=== PATIENT | female | born 1950 | race Caucasian/White ===

== ENCOUNTER 2017-02-17 15:33 | Emergency (ER) | payer BC, MEDICARE ==
[~2017-02-17] VITALS: Ht 157.5 cm; Wt 70.2 kg
[2017-02-17] MEDS ORDERED: ACETAMINOPHEN 325 MG TABLET PO ONE (16:00)
[2017-02-17] MEDS ORDERED: SODIUM CHLORIDE 0.9% 1,000ML IVBOLUS ONE (16:00)
[2017-02-17] MEDS ORDERED: SODIUM CHLORIDE FLUSH 10ML SYR IVF ONE (16:00)
[2017-02-17] MEDS ORDERED: AMLO10TA2 PO (16:31)
[2017-02-17] MEDS ORDERED: ONDA8TAB9 PO (16:31)
[2017-02-17] MEDS ORDERED: ACETAMINOPHEN 325 MG TABLET ONE (16:46)
[2017-02-17 16:48] LABS: BLOOD UREA NITROGEN 16 mg/dL (7-18)
[2017-02-17] MEDS ORDERED: LEVOFLOXACIN 750 MG TABLET PO ONE (18:00)
[2017-02-17] MEDS ORDERED: TBO-FILGRASTIM 480 MCG/0.8 ML SQ ONE (18:00)
[2017-02-17] MEDS ORDERED: LEVOFLOXACIN 750 MG TABLET ONE (18:14)
[2017-02-17 18:36] VITALS: BP 146/106
== END 2017-02-17 18:38 | disposition home or self-care (01) ==
LOC: ED 16:24
DX: D70.1 Agranulocytosis secondary to cancer chemotherapy (principal); R50.9 Fever, unspecified
CPT/HCPCS: 36415; 71010; 80048; 81001; 82040; 83605; 84145; 85025; 87040; 96372; 99285; J1447; J7030

== ENCOUNTER → 2017-04-13 | Outpatient (CLI) | payer BC, MEDICARE ==
[~2017-04-13] MED LIST: AMLO10TA2 PO; AMLO5TAB4 PO; APIX5TAB PO; OMNIPAQUE 350 MG/ML, 100ML BOTTLE ONE; ONDA8TAB9 PO
== END | disposition home or self-care (01) ==
LOC: CFH 11:50
PROVIDERS: ATTEND Internal Medicine Hematology & Oncology
DX: I26.99 Other pulmonary embolism without acute cor pulmonale (principal); R91.8 Other nonspecific abnormal finding of lung field; J90 Pleural effusion, not elsewhere classified; E04.1 Nontoxic single thyroid nodule; R59.0 Localized enlarged lymph nodes
CPT/HCPCS: 71275; Q9967

== ENCOUNTER 2017-04-16 10:36 | Inpatient (IN) | payer BC, MEDICARE ==
[~2017-04-16] VITALS: Ht 157.5 cm; Wt 66.7 kg
[~2017-04-16 10:36] MED LIST changes: -AMLO5TAB4 PO; -APIX5TAB PO; -OMNIPAQUE 350 MG/ML, 100ML BOTTLE ONE
[2017-04-16] MEDS ORDERED: ENOXAPARIN 60 MG/0.6 ML SQ ONE (10:49)
[2017-04-16] MEDS ORDERED: SODIUM CHLORIDE FLUSH 10ML SYR IVF ONE (11:00)
[2017-04-16] MEDS ORDERED: SODIUM CHLORIDE 0.9% 1,000ML IVBOLUS ONE (11:00)
[2017-04-16 11:22] LABS: HEMATOCRIT 35.3 % (34.6-47.8); HEMOGLOBIN 11.7 g/dL (11.7-16.4); WHITE BLOOD COUNT 6.7 x10^3/uL (3.4-10)
[2017-04-16] MEDS ORDERED: AMLO5TAB4 PO (11:25)
[2017-04-16 11:34] LABS: BLOOD UREA NITROGEN 8 mg/dL (7-18)
[2017-04-16 11:42] LABS: IS PT STATUS REG ER OR PRE ER? YES
[2017-04-16] MEDS ORDERED: CEFTRIAXONE PMX 1GM/50ML 50 ML IVPB ONE (12:00)
[2017-04-16] MEDS ORDERED: HYDROcodone/APAP 5/325 TABLET PO PRN (13:00)
[2017-04-16] MEDS ORDERED: BISACODYL 10 MG SUPP PR PRN (13:00)
[2017-04-16] MEDS ORDERED: DOCUSATE 100 MG CAPSULE PO PRN (13:00)
[2017-04-16] MEDS ORDERED: ONDANSETRON 2MG/ML, 2ML IVPush PRN (13:00)
[2017-04-16] MEDS ORDERED: POLYETHYLENE GLYCOL 17 GM PACKET PO PRN (13:00)
[2017-04-16] MEDS ORDERED: LABETALOL 5MG/ML, 20ML IVPush PRN (13:00)
[2017-04-16] MEDS ORDERED: morphine SULFATE 10 MG/ML, 1ML IVPush PRN (13:00)
[2017-04-16] MEDS ORDERED: ACETAMINOPHEN 325 MG TABLET PO PRN (13:00)
[2017-04-16] MEDS ORDERED: ENOXAPARIN 60 MG/0.6 ML ONE (14:26)
[2017-04-16] MEDS: ENOXAPARIN 60 MG/0.6 ML SQ SCH (14:28)
[2017-04-16 15:58] VITALS: BP 155/82
[2017-04-16 19:15] VITALS: BP 128/76
[2017-04-16] MEDS: SODIUM CHLORIDE FLUSH 10ML SYR IVF SCH (21:19)
[2017-04-16] MEDS: AMLODIPINE 5 MG TABLET PO SCH (22:56)
[2017-04-17 01:15] VITALS: BP 138/80
[2017-04-17] MEDS: ENOXAPARIN 60 MG/0.6 ML SQ SCH (03:19)
[2017-04-17 05:09] LABS: HEMATOCRIT 30.3 % (34.6-47.8); HEMOGLOBIN 10.3 g/dL (11.7-16.4); WHITE BLOOD COUNT 4.2 x10^3/uL (3.4-10)
[2017-04-17 08:05] VITALS: BP_SYST 147; BP_SYST 159; BP_DIAS 75; BP_DIAS 79
[2017-04-17] MEDS: SODIUM CHLORIDE FLUSH 10ML SYR IVF SCH ×2 (08:52→21:15)
[2017-04-17 15:16] VITALS: BP_SYST 162; BP_SYST 164; BP_DIAS 93; BP_DIAS 94
[2017-04-17 20:36] VITALS: BP 125/77
[2017-04-17] MEDS: APIXABAN 5 MG TABLET PO SCH (21:16)
[2017-04-17] MEDS: AMLODIPINE 5 MG TABLET PO SCH (21:16)
[2017-04-18 08:18] LABS: BLOOD UREA NITROGEN 8 mg/dL (7-18); HEMATOCRIT 29.9 % (34.6-47.8); WHITE BLOOD COUNT 3.8 x10^3/uL (3.4-10)
[2017-04-18] MEDS: SODIUM CHLORIDE FLUSH 10ML SYR IVF SCH (09:14)
[2017-04-18] MEDS: APIXABAN 5 MG TABLET PO SCH (09:14)
[2017-04-18] MEDS ORDERED: APIX5TAB PO (12:12)
== END 2017-04-18 14:40 | disposition home or self-care (01) | DRG 175 ==
LOC: ED 10:54 → EDIP 11:53 → 5SO 15:54
PROVIDERS: ADMIT Hospitalist; ATTEND Hospitalist
DX: I26.99 Other pulmonary embolism without acute cor pulmonale (principal); J96.21 Acute and chronic respiratory failure with hypoxia; J15.9 Unspecified bacterial pneumonia; D68.59 Other primary thrombophilia; I31.3 Pericardial effusion (noninflammatory); I11.9 Hypertensive heart disease without heart failure; F41.9 Anxiety disorder, unspecified; Z85.118 Personal history of other malignant neoplasm of bronchus and lung; Z86.718 Personal history of other venous thrombosis and embolism; Z87.891 Personal history of nicotine dependence; Z92.21 Personal history of antineoplastic chemotherapy; Z92.3 Personal history of irradiation
CPT/HCPCS: 36415; 71010; 80048; 82040; 83605; 84484; 85025; 85610; 85730; 87040; 93005; 93306; 93970; 96360; 96372; J1650; J7030

== ENCOUNTER 2017-04-24 00:12 | Inpatient (IN) | payer BC, MEDICARE ==
[~2017-04-24] VITALS: Ht 157.5 cm; Wt 88.3 kg
[~2017-04-24 00:12] MED LIST changes: +AMLO5TAB4 PO; +APIX5TAB PO
[2017-04-24] MEDS ORDERED: SODIUM CHLORIDE 0.9% 1,000ML IVBOLUS ONE (00:30)
[2017-04-24 00:54] LABS: ASPARTATE AMINO TRANSFERASE 24 U/L (15-37); BLOOD UREA NITROGEN 9 mg/dL (7-18)
[2017-04-24 00:58] LABS: IS PT STATUS REG ER OR PRE ER? NO
[2017-04-24 01:15] LABS: HEMATOCRIT 34.2 % (34.6-47.8); HEMOGLOBIN 11.4 g/dL (11.7-16.4); WHITE BLOOD COUNT 5.5 x10^3/uL (3.4-10)
[2017-04-24] MEDS ORDERED: OMNIPAQUE 350 MG/ML, 100ML BOTTLE ONE (01:31)
[2017-04-24] MEDS ORDERED: HEPARIN 25,000 UNITS/500ML PMX 500 ML ONE (02:23)
[2017-04-24] MEDS ORDERED: HEPARIN 5,000 UNITS/ML, 1ML ONE (02:23)
[2017-04-24] MEDS ORDERED: HEPARIN 25,000 UNITS/500ML PMX 500 ML IV PRN (02:30)
[2017-04-24] MEDS ORDERED: HEPARIN 5,000 UNITS/ML, 1ML IV PRN (02:30)
[2017-04-24] MEDS ORDERED: HEPARIN 5,000 UNITS/ML, 1ML IV ONE (02:30)
[2017-04-24] MEDS ORDERED: SODIUM CHLORIDE 0.9% 1,000 ML IV ONE (03:25)
[2017-04-24] MEDS ORDERED: MORPHINE SULFATE 4 MG/ML, 1ML IVPush PRN (03:30)
[2017-04-24] MEDS ORDERED: TEMAZEPAM 15 MG CAPSULE PO PRN (03:30)
[2017-04-24] MEDS ORDERED: HYDROcodone/APAP 5/325 TABLET PO PRN (03:30)
[2017-04-24] MEDS ORDERED: ONDANSETRON 2MG/ML, 2ML IVPush PRN ×2 (03:30)
[2017-04-24] MEDS ORDERED: APIX5TAB PO (04:21)
[2017-04-24 04:32] VITALS: BP 149/83
[2017-04-24 07:20] VITALS: BP 130/77
[2017-04-24] MEDS ORDERED: APIXABAN 5 MG TABLET PO SCH (09:00)
[2017-04-24] MEDS ORDERED: AMLODIPINE 5 MG TABLET PO SCH (09:00)
[2017-04-24 13:00] VITALS: BP 128/77
[2017-04-24 14:29] VITALS: BP 125/65
[2017-04-24 19:25] VITALS: BP 134/78
[2017-04-24] MEDS: APIXABAN 5 MG TABLET PO SCH (20:17)
[2017-04-25 01:42] VITALS: BP 117/77
[2017-04-25 04:38] LABS: HEMATOCRIT 29.9 % (34.6-47.8); WHITE BLOOD COUNT 3.8 x10^3/uL (3.4-10)
[2017-04-25 08:12] VITALS: BP 114/71
[2017-04-25] MEDS: APIXABAN 5 MG TABLET PO SCH (08:21)
[2017-04-25] MEDS ORDERED: AMLODIPINE 5 MG TABLET PO SCH (21:00)
[2017-04-26 06:15] LABS: ANTI-Xa-UNFRACTIONATED HEP > 0.79 IU/mL (0.30-0.70)
== END 2017-04-25 11:05 | disposition home or self-care (01) | DRG 189 ==
LOC: ED 02:02 → EDIP 03:25 → 4WST 04:29 → DCLOUNGE 04-25 11:00
PROVIDERS: ADMIT Internal Medicine; ATTEND Internal Medicine
DX: J96.21 Acute and chronic respiratory failure with hypoxia (principal); D68.59 Other primary thrombophilia; Z99.81 Dependence on supplemental oxygen; R00.0 Tachycardia, unspecified; I10 Essential (primary) hypertension; I49.9 Cardiac arrhythmia, unspecified; R04.0 Epistaxis; Z85.118 Personal history of other malignant neoplasm of bronchus and lung; Z86.711 Personal history of pulmonary embolism; Z87.891 Personal history of nicotine dependence
CPT/HCPCS: 36415; 71275; 80053; 83735; 84484; 85025; 85520; 85610; 85730; 93005; 96360; Q9967; J7030

== ENCOUNTER 2017-05-02 18:36 | Inpatient (IN) | payer BC, MEDICARE ==
[~2017-05-02] VITALS: Ht 157.5 cm; Wt 69.3 kg
[2017-05-02 19:53] LABS: HEMATOCRIT 37.8 % (34.6-47.8); HEMOGLOBIN 12.9 g/dL (11.7-16.4); WHITE BLOOD COUNT 6.6 x10^3/uL (3.4-10)
[2017-05-02] MEDS ORDERED: SODIUM CHLORIDE 0.9% 1,000ML IVBOLUS ONE (20:00)
[2017-05-02] MEDS ORDERED: SODIUM CHLORIDE FLUSH 10ML SYR IVF ONE (20:00)
[2017-05-02 20:06] LABS: ASPARTATE AMINO TRANSFERASE 23 U/L (15-37); BLOOD UREA NITROGEN 12 mg/dL (7-18)
[2017-05-02 20:10] LABS: IS PT STATUS REG ER OR PRE ER? YES
[2017-05-02] MEDS ORDERED: OMNIPAQUE 350 MG/ML, 100ML BOTTLE ONE (21:10)
[2017-05-02] MEDS ORDERED: AMLODIPINE 5 MG TABLET PO ONE (23:30)
[2017-05-03 00:29] VITALS: BP 146/86
[2017-05-03] MEDS ORDERED: ACETAMINOPHEN 325 MG TABLET PO PRN (02:30)
[2017-05-03] MEDS ORDERED: HYDROcodone/APAP 5/325 TABLET PO PRN (02:30)
[2017-05-03] MEDS ORDERED: ONDANSETRON 2MG/ML, 2ML IVPush PRN (02:30)
[2017-05-03] MEDS ORDERED: morphine SULFATE 10 MG/ML, 1ML IVPush PRN (02:30)
[2017-05-03] MEDS ORDERED: TEMAZEPAM 15 MG CAPSULE PO PRN (02:30)
[2017-05-03] MEDS ORDERED: LABETALOL 5MG/ML, 20ML IVPush PRN (02:30)
[2017-05-03] MEDS ORDERED: GUAIFENESIN/DM 200-20MG, 10ML UDC PO PRN (02:30)
[2017-05-03] MEDS ORDERED: ONDANSETRON ODT 4 MG PO PRN (02:30)
[2017-05-03 07:10] VITALS: BP 145/83
[2017-05-03] MEDS: SENNA/DOCUSATE TABLET PO SCH (09:00)
[2017-05-03] MEDS ORDERED: APIXABAN 5 MG TABLET PO SCH (09:00)
[2017-05-03 12:20] VITALS: BP 154/82
[2017-05-03 19:37] VITALS: BP 149/94
[2017-05-03] MEDS: AMLODIPINE 5 MG TABLET PO SCH (20:28)
[2017-05-04 04:02] VITALS: BP 113/77
[2017-05-04 05:34] LABS: HEMATOCRIT 38.1 % (34.6-47.8); WHITE BLOOD COUNT 5.2 x10^3/uL (3.4-10)
[2017-05-04 05:55] LABS: ASPARTATE AMINO TRANSFERASE 21 U/L (15-37); BLOOD UREA NITROGEN 11 mg/dL (7-18)
[2017-05-04 07:10] VITALS: BP 122/83
[2017-05-04] MEDS: SENNA/DOCUSATE TABLET PO SCH (09:12)
[2017-05-04 15:10] VITALS: BP 117/81
[2017-05-04 19:43] VITALS: BP 123/82
[2017-05-04] MEDS: AMLODIPINE 5 MG TABLET PO SCH (20:57)
[2017-05-05 03:36] VITALS: BP 113/75
[2017-05-05 07:23] VITALS: BP 130/80
[2017-05-05] MEDS: SENNA/DOCUSATE TABLET PO SCH (09:06)
[2017-05-05] MEDS ORDERED: MIDAZOLAM 1 MG/ML, 5ML ONE ×3 (09:53→12:00)
[2017-05-05] MEDS ORDERED: FENTANYL PF 100 MCG/2ML ONE ×3 (09:53→13:20)
[2017-05-05] MEDS ORDERED: ACETYLCYSTEINE 20%, 10ML INH STA (11:19)
[2017-05-05] MEDS ORDERED: LIDOCAINE 2%, 20ML ONE (12:00)
[2017-05-05] MEDS ORDERED: SUCCINYLCHOLINE 20 MG/ML, 10ML ONE (12:00)
[2017-05-05] MEDS ORDERED: LIDOCAINE GEL 2%, 5ML ONE (12:00)
[2017-05-05] MEDS ORDERED: LIDOCAINE 4% TOPICAL SOLUTION 50 ML ONE (12:00)
[2017-05-05] MEDS ORDERED: PROPOFOL 100 ML IV ONE (12:50)
[2017-05-05] MEDS ORDERED: PROPOFOL 100 ML IV PRN (13:00)
[2017-05-05] MEDS ORDERED: ACETYLCYSTEINE 10%, 4ML IPPB ONE (13:01)
[2017-05-05] MEDS ORDERED: SENNA/DOCUSATE TABLET NG PRN (14:00)
[2017-05-05] MEDS ORDERED: BISACODYL 10 MG SUPP PR PRN (14:00)
[2017-05-05] MEDS ORDERED: LIDOCAINE-MPF 1%, 2ML ENDO PRN (14:00)
[2017-05-05] MEDS ORDERED: SENNOSIDES 8.8 MG/5 ML ORAL SOL NG PRN (14:00)
[2017-05-05] MEDS: ALBUTEROL/IPRATROPIUM 2.5MG/0.5MG, 3 ML INLINE SCH ×3 (14:00→22:19)
[2017-05-05] MEDS ORDERED: LACTULOSE 20 GM/30 ML UDC NG PRN (14:00)
[2017-05-05] MEDS ORDERED: FENTANYL PF 100 MCG/2ML IVPush ONE (14:00)
[2017-05-05] MEDS ORDERED: PHARMACY MAY ADJ FOR RENAL FX MC SCH (14:00)
[2017-05-05 14:53] LABS: ABG COLLECTION SITE LEFT BRACHIAL; FIO2 100 %
[2017-05-05 15:35] LABS: HEMOGLOBIN 12.7 g/dL (11.7-16.4); WHITE BLOOD COUNT 12.3 x10^3/uL (3.4-10)
[2017-05-05 15:41] LABS: BLOOD UREA NITROGEN 14 mg/dL (7-18)
[2017-05-05 16:58] LABS: ABG COLLECTION SITE LEFT BRACHIAL
[2017-05-05] MEDS: methylPREDNISolone SOD SUCC 125 MG/2 ML IVPush SCH ×2 (17:16→23:09)
[2017-05-05] MEDS: FAMOTIDINE 20 MG/2 ML IV SCH (17:16)
[2017-05-05] MEDS: FENTANYL PF 100 MCG/2ML IVPush PRN ×2 (17:16→20:32)
[2017-05-05 17:56] LABS: BRONCHOSCOPY RECEIVED; BRONCHOSCOPY QUESTIONNAIRE RECEIVED
[2017-05-05] MEDS: PROPOFOL 100 ML IV PRN (20:36)
[2017-05-05] MEDS: AMLODIPINE 5 MG TABLET PO SCH (21:46)
[2017-05-05] MEDS ORDERED: SODIUM CHLORIDE 0.9% 1,000ML IVBOLUS ONE (22:00)
[2017-05-06] MEDS ORDERED: morphine SULFATE 10 MG/ML, 1ML IVPush PRN (00:30)
[2017-05-06] MEDS ORDERED: LIDOCAINE-MPF 1%, 2ML ENDO PRN (00:30)
[2017-05-06] MEDS ORDERED: ONDANSETRON ODT 4 MG PO PRN (00:30)
[2017-05-06] MEDS ORDERED: LABETALOL 5MG/ML, 20ML IVPush PRN (00:30)
[2017-05-06] MEDS ORDERED: ONDANSETRON 2MG/ML, 2ML IVPush PRN (00:30)
[2017-05-06] MEDS ORDERED: BISACODYL 10 MG SUPP PR PRN (00:30)
[2017-05-06] MEDS ORDERED: ACETAMINOPHEN 325 MG TABLET PO PRN (00:30)
[2017-05-06] MEDS ORDERED: HYDROcodone/APAP 5/325 TABLET PO PRN (00:30)
[2017-05-06] MEDS ORDERED: TEMAZEPAM 15 MG CAPSULE PO PRN (00:30)
[2017-05-06] MEDS: ALBUTEROL/IPRATROPIUM 2.5MG/0.5MG, 3 ML INLINE SCH ×6 (02:17→21:33)
[2017-05-06] MEDS: FENTANYL PF 100 MCG/2ML IVPush PRN (02:52)
[2017-05-06 04:10] LABS: ABG COLLECTION SITE NOT DOCUMENTED
[2017-05-06 04:20] LABS: BLOOD UREA NITROGEN 13 mg/dL (7-18)
[2017-05-06 04:34] LABS: HEMATOCRIT 33.3 % (34.6-47.8); HEMOGLOBIN 11.2 g/dL (11.7-16.4); WHITE BLOOD COUNT 10.3 x10^3/uL (3.4-10)
[2017-05-06] MEDS: methylPREDNISolone SOD SUCC 125 MG/2 ML IVPush SCH ×4 (05:11→23:49)
[2017-05-06] MEDS: FAMOTIDINE 20 MG/2 ML IV SCH ×2 (05:11→17:29)
[2017-05-06] MEDS: PROPOFOL 100 ML IV PRN ×2 (07:39→17:33)
[2017-05-06] MEDS ORDERED: MAGNESIUM SULFATE PMX 4GM/100M 100 ML IV ONE (08:00)
[2017-05-06] MEDS: SODIUM CHLORIDE 0.9% 1,000 ML IV SCH ×2 (08:00→16:35)
[2017-05-06] MEDS: SENNA/DOCUSATE TABLET PO SCH (08:37)
[2017-05-06] MEDS ORDERED: SODIUM BICARB 8.4%, 50ML SYRINGE IVPush ONE (11:00)
[2017-05-06] MEDS: CETACAINE 50ML TP PRN ×3 (11:09→21:36)
[2017-05-06] MEDS: AMLODIPINE 5 MG TABLET PO SCH (21:35)
[2017-05-07] MEDS: ALBUTEROL/IPRATROPIUM 2.5MG/0.5MG, 3 ML INLINE SCH ×6 (01:45→23:03)
[2017-05-07] MEDS: PROPOFOL 100 ML IV PRN (03:36)
[2017-05-07] MEDS: SODIUM CHLORIDE 0.9% 1,000 ML IV SCH (03:45)
[2017-05-07 04:23] LABS: ABG COLLECTION SITE RIGHT RADIAL; COLLATERAL CIRCULATION TESTING NORMAL
[2017-05-07 04:26] LABS: HEMATOCRIT 30.3 % (34.6-47.8); HEMOGLOBIN 10.4 g/dL (11.7-16.4); WHITE BLOOD COUNT 10.6 x10^3/uL (3.4-10)
[2017-05-07 04:37] LABS: BLOOD UREA NITROGEN 11 mg/dL (7-18)
[2017-05-07] MEDS: CETACAINE 50ML TP PRN (04:55)
[2017-05-07] MEDS ORDERED: POTASSIUM CHLORIDE 20 MEQ PACKET PO ONE ×2 (05:00→10:00)
[2017-05-07] MEDS: FAMOTIDINE 20 MG/2 ML IV SCH ×2 (06:06→17:00)
[2017-05-07] MEDS: methylPREDNISolone SOD SUCC 125 MG/2 ML IVPush SCH ×4 (06:06→23:10)
[2017-05-07] MEDS ORDERED: HEPARIN 5,000 UNITS/ML, 1ML IV ONE (08:00)
[2017-05-07] MEDS: SENNA/DOCUSATE TABLET PO SCH (08:03)
[2017-05-07] MEDS: HEPARIN 25,000 UNITS/500ML PMX 500 ML IV PRN (12:53)
[2017-05-07] MEDS: GUAIFENESIN ER 600 MG TABLET PO SCH (21:04)
[2017-05-07] MEDS: HEPARIN 5,000 UNITS/ML, 1ML IV PRN (21:04)
[2017-05-07] MEDS: AMLODIPINE 5 MG TABLET PO SCH (21:05)
[2017-05-08] MEDS: ALBUTEROL/IPRATROPIUM 2.5MG/0.5MG, 3 ML INLINE SCH ×6 (03:10→22:55)
[2017-05-08 03:11] LABS: HEMATOCRIT 31.1 % (34.6-47.8); HEMOGLOBIN 10.2 g/dL (11.7-16.4); WHITE BLOOD COUNT 8.8 x10^3/uL (3.4-10)
[2017-05-08 03:12] LABS: ABG COLLECTION SITE LEFT BRACHIAL
[2017-05-08 03:24] LABS: BLOOD UREA NITROGEN 9 mg/dL (7-18)
[2017-05-08] MEDS: methylPREDNISolone SOD SUCC 125 MG/2 ML IVPush SCH ×2 (05:33→12:08)
[2017-05-08] MEDS ORDERED: SODIUM CHLORIDE 0.9% 1,000 ML IV SCH ×2 (08:00)
[2017-05-08] MEDS: FAMOTIDINE 20 MG TABLET PO SCH ×2 (08:55→21:45)
[2017-05-08] MEDS: GUAIFENESIN ER 600 MG TABLET PO SCH ×2 (08:55→21:45)
[2017-05-08] MEDS: SENNA/DOCUSATE TABLET PO SCH (08:55)
[2017-05-08 12:05] VITALS: BP 143/75
[2017-05-08] MEDS: HEPARIN 25,000 UNITS/500ML PMX 500 ML IV PRN (17:02)
[2017-05-08 19:24] VITALS: BP 142/77
[2017-05-08] MEDS: AMLODIPINE 5 MG TABLET PO SCH (21:45)
[2017-05-08] MEDS: methylPREDNISolone SOD SUCC 40 MG/ML IVPush SCH (21:51)
[2017-05-09 00:54] VITALS: BP 153/84
[2017-05-09] MEDS: ALBUTEROL/IPRATROPIUM 2.5MG/0.5MG, 3 ML INLINE SCH ×5 (02:55→16:50)
[2017-05-09 05:19] LABS: HEMATOCRIT 29.5 % (34.6-47.8); HEMOGLOBIN 9.9 g/dL (11.7-16.4); WHITE BLOOD COUNT 6.8 x10^3/uL (3.4-10)
[2017-05-09 05:20] LABS: ASPARTATE AMINO TRANSFERASE 12 U/L (15-37); BLOOD UREA NITROGEN 9 mg/dL (7-18)
[2017-05-09] MEDS: HEPARIN 5,000 UNITS/ML, 1ML IV PRN (06:14)
[2017-05-09] MEDS: methylPREDNISolone SOD SUCC 40 MG/ML IVPush SCH ×3 (06:29→22:05)
[2017-05-09] MEDS: SENNA/DOCUSATE TABLET PO SCH (09:00)
[2017-05-09] MEDS: GUAIFENESIN ER 600 MG TABLET PO SCH ×2 (09:07→21:08)
[2017-05-09] MEDS: FAMOTIDINE 20 MG TABLET PO SCH ×2 (09:07→21:08)
[2017-05-09 09:11] VITALS: BP 127/77
[2017-05-09 14:07] VITALS: BP 134/76
[2017-05-09 17:44] VITALS: BP 153/89
[2017-05-09] MEDS: HEPARIN 25,000 UNITS/500ML PMX 500 ML IV PRN (17:51)
[2017-05-09] MEDS ORDERED: APIXABAN 5 MG TABLET PO SCH (19:00)
[2017-05-09 19:38] VITALS: BP 146/79
[2017-05-09] MEDS ORDERED: MELATONIN 5 MG TABLET PO PRN (20:00)
[2017-05-09] MEDS: AMLODIPINE 5 MG TABLET PO SCH (21:08)
[2017-05-10 02:03] VITALS: BP 134/72
[2017-05-10] MEDS: methylPREDNISolone SOD SUCC 40 MG/ML IVPush SCH ×3 (05:52→21:23)
[2017-05-10] MEDS: ALBUTEROL/IPRATROPIUM 2.5MG/0.5MG, 3 ML NPPB SCH ×4 (06:53→20:00)
[2017-05-10 08:25] VITALS: BP 138/81
[2017-05-10] MEDS: GUAIFENESIN ER 600 MG TABLET PO SCH ×2 (08:29→21:23)
[2017-05-10] MEDS: SENNA/DOCUSATE TABLET PO SCH (08:29)
[2017-05-10] MEDS: FAMOTIDINE 20 MG TABLET PO SCH ×2 (08:29→21:23)
[2017-05-10 14:42] VITALS: BP 178/68
[2017-05-10 19:02] VITALS: BP 151/83
[2017-05-10] MEDS: AMLODIPINE 5 MG TABLET PO SCH (21:23)
[2017-05-10] MEDS: HEPARIN 25,000 UNITS/500ML PMX 500 ML IV PRN (23:05)
[2017-05-11 02:33] VITALS: BP 134/73
[2017-05-11 05:38] LABS: HEMATOCRIT 30.5 % (34.6-47.8); HEMOGLOBIN 10.3 g/dL (11.7-16.4); WHITE BLOOD COUNT 5.6 x10^3/uL (3.4-10)
[2017-05-11 05:46] LABS: BLOOD UREA NITROGEN 18 mg/dL (7-18)
[2017-05-11] MEDS: methylPREDNISolone SOD SUCC 40 MG/ML IVPush SCH (06:01)
[2017-05-11] MEDS: ALBUTEROL/IPRATROPIUM 2.5MG/0.5MG, 3 ML NPPB SCH ×3 (07:20→14:25)
[2017-05-11 07:48] VITALS: BP 118/69
[2017-05-11] MEDS: SENNA/DOCUSATE TABLET PO SCH (09:30)
[2017-05-11] MEDS: FAMOTIDINE 20 MG TABLET PO SCH (09:31)
[2017-05-11] MEDS: GUAIFENESIN ER 600 MG TABLET PO SCH (09:31)
[2017-05-11 13:28] VITALS: BP 127/74
[2017-05-11] MEDS ORDERED: PRED20TA PO (14:07)
[2017-05-11] MEDS ORDERED: ALBU2.5V NEB (17:25)
[2017-05-11] MEDS ORDERED: APIXABAN 5 MG TABLET PO SCH (21:00)
[2017-05-12] MEDS ORDERED: FAMOTIDINE 20 MG TABLET PO SCH (09:00)
== END 2017-05-11 18:39 | disposition home or self-care (01) | DRG 166 ==
LOC: ED 21:39 → EDIP 21:44 → ED 21:48 → 4EST 23:59 → CCU 05-05 10:48 → 3NW 05-08 10:50
PROVIDERS: ADMIT Internal Medicine; ATTEND Internal Medicine
PROC: 5A1945Z Respiratory Ventilation, 24-96 Consecutive Hours (ICD-10-PCS; 2017-05-02)
PROC: 0BH17EZ Insertion of Endotracheal Airway into Trachea, Via Natural or Artificial Opening (ICD-10-PCS; 2017-05-02)
PROC: 0B9J8ZX Drainage of Left Lower Lung Lobe, Via Natural or Artificial Opening Endoscopic, Diagnostic (ICD-10-PCS; 2017-05-05)
PROC: 0BBB8ZX Excision of Left Lower Lobe Bronchus, Via Natural or Artificial Opening Endoscopic, Diagnostic (ICD-10-PCS; 2017-05-05)
PROC: 0BB88ZX Excision of Left Upper Lobe Bronchus, Via Natural or Artificial Opening Endoscopic, Diagnostic (ICD-10-PCS; 2017-05-05)
PROC: 0T9B70Z Drainage of Bladder with Drainage Device, Via Natural or Artificial Opening (ICD-10-PCS; principal; 2017-05-05 11:00)
DX: J96.21 Acute and chronic respiratory failure with hypoxia (principal); I26.99 Other pulmonary embolism without acute cor pulmonale; Z99.11 Dependence on respirator [ventilator] status; E87.2 Acidosis; D68.69 Other thrombophilia; J98.09 Other diseases of bronchus, not elsewhere classified; C34.90 Malignant neoplasm of unspecified part of unspecified bronchus or lung; J98.11 Atelectasis; C34.92 Malignant neoplasm of unspecified part of left bronchus or lung; T17.990A Other foreign object in respiratory tract, part unspecified in causing asphyxiation, initial encounter; Z92.21 Personal history of antineoplastic chemotherapy; Z92.3 Personal history of irradiation; G47.30 Sleep apnea, unspecified; H40.9 Unspecified glaucoma; I10 Essential (primary) hypertension; Z51.5 Encounter for palliative care; Z79.01 Long term (current) use of anticoagulants; Z87.891 Personal history of nicotine dependence; Z99.81 Dependence on supplemental oxygen
CPT/HCPCS: 31622; 31624; 31625; 36415; 36600; 71010; 71275; 80048; 80053; 81001; 82040; 82803; 83605; 83735; 83880; 84100; 84478; 84484; 85025; 85520; 85610; 85730; 87015; 87070; 87081; 87086; 87102; 87116; 87205; 87206; 88108; 88112; 88305; 88312; 93005; 93970; 94002; 94003; 94640; 99152; 99153; J1644; J2250; J2704; J3010; J3490; J7608; J7620; Q9967; J0330; J2920; J2930; J3475; J7030; S0028

== ENCOUNTER → 2017-10-15 | Outpatient (CLI) | payer BC, MEDICARE, OTHER ==
[~2017-10-15] MED LIST changes: +ALBU2.5V NEB; +OMNIPAQUE 350 MG/ML, 100ML BOTTLE ONE; +PRED20TA PO
== END | disposition home or self-care (01) ==
LOC: CFH 10:57
PROVIDERS: ATTEND Internal Medicine Hematology & Oncology
DX: J90 Pleural effusion, not elsewhere classified (principal); J98.11 Atelectasis; K76.89 Other specified diseases of liver; C34.32 Malignant neoplasm of lower lobe, left bronchus or lung
CPT/HCPCS: 71260; 74177; Q9967

== ENCOUNTER → 2018-05-23 | Outpatient (CLI) | payer BC, MEDICARE ==
[~2018-05-23] MED LIST changes: -AMLO10TA2 PO; +AMLO10TA6 PO
== END | disposition home or self-care (01) ==
LOC: CFH 09:05
PROVIDERS: ATTEND Internal Medicine Hematology & Oncology
DX: J90 Pleural effusion, not elsewhere classified (principal); R91.8 Other nonspecific abnormal finding of lung field; R16.0 Hepatomegaly, not elsewhere classified; N28.1 Cyst of kidney, acquired; I70.0 Atherosclerosis of aorta; C34.32 Malignant neoplasm of lower lobe, left bronchus or lung; Z86.718 Personal history of other venous thrombosis and embolism
CPT/HCPCS: 71260; 74177; Q9967

== ENCOUNTER → 2020-03-04 | Outpatient (CLI) | payer MEDICARE, OTHER ==
[~2020-03-04] MED LIST changes: -AMLO10TA6 PO; +AMLO10TA8 PO; +ERLO150T PO; -OMNIPAQUE 350 MG/ML, 100ML BOTTLE ONE
== END | disposition home or self-care (01) ==
LOC: ROC 07:21
PROVIDERS: ATTEND Radiology Radiation Oncology
DX: C34.32 Malignant neoplasm of lower lobe, left bronchus or lung (principal); C78.7 Secondary malignant neoplasm of liver and intrahepatic bile duct; J90 Pleural effusion, not elsewhere classified; R91.1 Solitary pulmonary nodule
CPT/HCPCS: G0463

== ENCOUNTER → 2020-07-12 | Outpatient (CLI) | payer MEDICARE, OTHER ==
[~2020-07-12] MED LIST changes: +ACID1TAB7 PO; +AMLO-211 PO; -AMLO10TA8 PO; +CEFD300C37 PO; +DOXY100T PO; +FOLI-17 PO; +METO50TA82 PO
== END | disposition home or self-care (01) ==
LOC: CFH 11:10
PROVIDERS: ATTEND Internal Medicine Hematology & Oncology
DX: C34.32 Malignant neoplasm of lower lobe, left bronchus or lung (principal); I34.0 Nonrheumatic mitral (valve) insufficiency; J91.0 Malignant pleural effusion
CPT/HCPCS: 93306

== ENCOUNTER 2020-10-29 09:44 | Outpatient (CLI) | payer MEDICARE, OTHER ==
[~2020-10-29 09:44] MED LIST changes: -FOLI-17 PO; +FOLI1TAB32 PO
== END 2020-10-29 23:59 | disposition home or self-care (01) ==
LOC: CFH 09:44
PROVIDERS: ATTEND Internal Medicine Cardiovascular Disease
DX: I08.8 Other rheumatic multiple valve diseases (principal); I31.3 Pericardial effusion (noninflammatory); J90 Pleural effusion, not elsewhere classified; I10 Essential (primary) hypertension; E78.5 Hyperlipidemia, unspecified
CPT/HCPCS: 93306

== ENCOUNTER 2021-01-15 09:24 | Emergency (ER) | payer MEDICARE, OTHER ==
--- NOTE | 2021-01-15 09:39 | NUR ---
BIB EMS FROM HOME FOR BOTH HI AND LOW HR READINGS ON HER PULSE OX UNIT AT HOME. PT WEARS 3 LPM O2 VIA NC BASELINE WITH NO STATED INCREASE IN HER SOB. EMS FOUND PT TO BE IN A FIB WITH RVR AT RATE OF 140-160'S PER PT PCP YOHANA MADE RECENT CHANGE IN MEDICATIONS FROM METOPROLOL TO AMLODIPINE. IS [employer].
--- NOTE | 2021-01-15 09:39 | NUR ---
Report received from triaging RN and care assumed.
[2021-01-15] MEDS ORDERED: SODIUM CHLORIDE FLUSH 10ML SYR IVF ONE (10:00)
[2021-01-15] MEDS ORDERED: SODIUM CHLORIDE 0.9% 1,000ML IVBOLUS ONE (10:00)
--- NOTE | 2021-01-15 10:01 | NUR ---
testing tech completing lab draw now. NS 1 liter bolus started to EMS IV site and running well. states pt will need the restroom soon. BSC brought to room for future needs at this time.
[2021-01-15 10:12] LABS: MEAN CORPUSCULAR HEMOGLOBIN 28.7 pg (27.0-34.8); MEAN CORPUSCULAR HGB CONC 32.4 g/dL (32.4-35.8); MEAN PLATELET VOLUME 8.6 fL (7.4-10.4); PLATELET COUNT 177 x10^3/uL (130-400); RED BLOOD COUNT 3.77 x10^6/uL (3.82-5.3); RED CELL DISTRIBUTION WIDTH 15.8 % (9.6-15.2)
--- NOTE | 2021-01-15 10:15 | NUR ---
Pt assisted to BSC with strong, steady gait noted and HR elevated to 140's briefly with extertion. Pt back to bed with extra blankets, yard conductor socks, and bottle of water provided per pt request after MD states okay to have water. Call light in reach.
[2021-01-15 10:21] LABS: ALANINE AMINOTRANSFERASE 24 U/L (12-78); ALBUMIN 3.1 g/dL (3.4-5.0); ANION GAP 10 mmol/L (5-15); CALCIUM 8.9 mg/dL (8.5-10.1); CHLORIDE 105 mmol/L (98-107); CREATININE 0.72 mg/dL (0.55-1.02)
[2021-01-15 10:26] LABS: ALKALINE PHOSPHATASE 136 U/L (45-117); BILIRUBIN,TOTAL 0.5 mg/dL (0.2-1.0); TOTAL PROTEIN 7.4 g/dL (6.4-8.2); TROPONIN I < 0.015 ng/mL (0.000-0.045)
[2021-01-15 10:33] LABS: MD YES
[2021-01-15] MEDS ORDERED: AMLO-150 PO (10:34)
[2021-01-15 10:35] LABS: <PLATELET ESTIMATE> DECREASED; <PLT MORPHOLOGY> NORMAL PLT MORPH; <RBC MORPHOLOGY> NORMAL; BAND#(MANUAL) 0.63 x10^3/uL; BANDS%(MANUAL) 3 % (0-7); EOS#(MANUAL) 0.42 x10^3/uL (0.0-0.4); EOS% (MANUAL) 2 % (1-7); LYMPH#(MANUAL) 0.84 x10^3/uL (1-3.4); LYMPHS% (MANUAL) 4 % (22-44); MONOS#(MANUAL) 0.42 x10^3/uL (0.3-2.7); MONOS% (MANUAL) 2 % (2-9); SEGS% (MANUAL) 89 % (42-75); TOXIC GRAN 1+
--- NOTE | 2021-01-15 10:51 | NUR ---
Lab and xray results reviewed. Chart marked for MD recheck.
[2021-01-15] MEDS ORDERED: ADENOSINE 6 MG/2 ML ONE (11:06)
[2021-01-15] MEDS ORDERED: METOPROLOL 1 MG/ML, 5ML ONE (11:14)
--- NOTE | 2021-01-15 11:22 | NUR ---
Metoprolol given slow IVP over 2+ minutes with noted decrease in HR to 102bpm directly after admin completed.
[2021-01-15] MEDS ORDERED: METOPROLOL 1 MG/ML, 5ML IVPush ONE (11:30)
[2021-01-15] MEDS ORDERED: PLEASE ENTER HEIGHT AND WEIGHT MC SCH (11:30)
[2021-01-15] MEDS ORDERED: ADENOSINE 6 MG/2 ML IVPush ONE (11:30)
--- NOTE | 2021-01-15 12:05 | NUR ---
Pt assisted to BSC with clean catch UA specimen obtained. UA sent to lab and Dr Carter at bedside for recheck as well.
[2021-01-15 12:14] LABS: MICROSCOPIC NOT IND
[2021-01-15 12:50] VITALS: BP 111/67
--- NOTE | 2021-01-15 12:50 | NUR ---
Results reviewed and chart marked for recheck by .
== END 2021-01-15 13:32 | disposition home or self-care (01) ==
LOC: ED 09:28
DX: R00.2 Palpitations (principal); C34.90 Malignant neoplasm of unspecified part of unspecified bronchus or lung; R00.0 Tachycardia, unspecified; D72.829 Elevated white blood cell count, unspecified; I10 Essential (primary) hypertension; Z86.711 Personal history of pulmonary embolism; Z87.891 Personal history of nicotine dependence
CPT/HCPCS: 36415; 71045; 80053; 81003; 83605; 83735; 83880; 84443; 84484; 85025; 93005; 96361; 96374; 99285; J7030